=== PATIENT | male | born 1955 | race Caucasian/White ===

== ENCOUNTER 2025-03-10 09:16 | Inpatient (IN) | payer MEDICARE ==
[~2025-03-10] VITALS: Ht 182.9 cm; Wt 93.1 kg
[2025-03-10] MEDS ORDERED: Ondansetron HCl 2 MG / ML 2ML Vial IV ONE (09:45)
[2025-03-10] MEDS ORDERED: Pantoprazole Sodium 40 MG Injection IV ONE (09:45)
[2025-03-10 10:10] LABS: BASOPHILS ABSOLUTE AUTO 0.06 K/mm3 (0.00-0.23); BASOPHILS PERCENT AUTO 0 % (0-2); EOSINOPHILS ABSOLUTE AUTO 0.03 K/mm3 (0.00-0.68); EOSINOPHILS PERCENT AUTO 0 % (0-6); Hematocrit 45.1 % (37.0-53.0); Hemoglobin 15.3 g/dL (13.5-17.5); IMMATURE GRAN ABSOLUTE AUTO 0.06 K/mm3 (0.00-0.10); IMMATURE GRAN PERCENT AUTO 0 % (0-1); LYMPHOCYTES ABSOLUTE AUTO 0.39 K/mm3 (0.84-5.20); LYMPHOCYTES PERCENT AUTO 3 % (21-46); MONOCYTES ABSOLUTE AUTO 0.72 K/mm3 (0.16-1.47); MONOCYTES PERCENT AUTO 5 % (4-13); Mean Corpuscular HGB Conc 33.9 g/dL (31.5-36.5); Mean Corpuscular Volume 90 fL (80-100); NEUTROPHILS ABSOLUTE AUTO 13.18 K/mm3 (1.96-9.15); NEUTROPHILS PERCENT AUTO 91 % (41-73); NRBC ABSOLUTE 0.00 K/mm3 (0.00-0.02); NRBC Auto 0.0 /100 WBC (0.0-0.2); Platelet Count 261 K/mm3 (150-400); RDW Coefficient Variation 14.5 % (11.7-14.2); RDW Standard Deviation 47.6 fL (35.1-46.3)
[2025-03-10 10:30] LABS: Alanine Aminotransfer (ALT/SGP 32.0 U/L (12-78); Albumin, Blood 3.3 g/dL (3.4-5.0); Albumin/Globulin Ratio 0.9 (0.8-1.8); Anion Gap 7.0 mmol/L (3-11); Aspartate Aminotrans (AST/SGOT 26.0 U/L (12-37); Bilirubin, Total 1.1 mg/dL (0.1-1.0); Blood Urea Nitrogen 20.0 mg/dL (8-24); CO2, Blood 26.0 mmol/L (21-32); Calcium, Blood 9.0 mg/dL (8.5-10.1); Chloride, Blood 108.0 mmol/L (98-108); Creatinine, Blood 0.88 mg/dL (0.60-1.20); Globulin, Blood 3.7 g/dL (2.2-4.0); Glucose, Blood 111.0 mg/dL (70-99); Potassium, Blood 3.8 mmol/L (3.5-5.5); Sodium, Blood 137.0 mmol/L (136-145); Total Protein, Blood 7.0 g/dL (6.4-8.2)
[2025-03-10] MEDS ORDERED: Morphine Sulfate 4 MG/1 ML Injection IV ONE (10:30)
[2025-03-10 10:33] LABS: Prothrombin Time Results 11.3 Sec (9.7-11.5)
[2025-03-10] MEDS ORDERED: CefTRIAXone Sodium 1,000 MG in NS 100 ML IV ONE (11:05)
[2025-03-10] MEDS ORDERED: ATOR10 PO (11:38)
[2025-03-10] MEDS ORDERED: NORT25 PO (11:38)
[2025-03-10] MEDS ORDERED: Bisoprolol Fumar5 MG PO (11:38)
[2025-03-10] MEDS ORDERED: MULVITA PO (11:38)
[2025-03-10] MEDS ORDERED: DOCU100 PO (11:38)
[2025-03-10] MEDS ORDERED: TAMS.4ER PO (11:38)
[2025-03-10] MEDS ORDERED: LEVSOD75 PO (11:39)
[2025-03-10] MEDS ORDERED: ALEN70 PO (11:39)
[2025-03-10] MEDS ORDERED: DULERA 100 MCG/13 GM INH (11:39)
[2025-03-10] MEDS ORDERED: TIOT18 INH (11:41)
[2025-03-10] MEDS ORDERED: SILD25T PO (11:41)
[2025-03-10] MEDS ORDERED: ALLEGRA ALLERG180 MG PO (11:41)
[2025-03-10] MEDS ORDERED: IBU600 MG PO (11:41)
[2025-03-10] MEDS ORDERED: ALBU90OI INH (11:42)
[2025-03-10] MEDS ORDERED: NS 1,000 ML IV SCH (13:00)
[2025-03-10] MEDS ORDERED: Pantoprazole Sodium 40 MG Injection IV SCH ×2 (13:00→19:00)
[2025-03-10 14:01] LABS: Hematocrit 43.8 % (37.0-53.0); Hemoglobin 14.3 g/dL (13.5-17.5)
[2025-03-10] MEDS ORDERED: Formoterol/Mometasone MDI 5/100 mcg 13 GM INH SCH (15:15)
[2025-03-10] MEDS ORDERED: Albuterol HFA200 ACT/6.7 GM INH INH SCH (15:15)
[2025-03-10] MEDS ORDERED: Tiotropium Bromide 2.5 MCG/ACT MIST INHAL (10 ACT/4 GM) INH SCH (15:15)
[2025-03-10 18:14] VITALS: BP 142/70
[2025-03-10 19:45] VITALS: BP 124/55
[2025-03-10 19:48] LABS: Hematocrit 40.2 % (37.0-53.0); Hemoglobin 13.0 g/dL (13.5-17.5)
--- NOTE | 2025-03-10 19:50 | NUR ---
1804- PT ARRIVED TO MEDICAL FLOOR ROOM 334 IN STABLE CONDITION ON 2L VIA NC.
--- NOTE | 2025-03-10 19:51 | NUR ---
SUMMARY- AAOX4. SBA IN ROOM. PT WEANED TO RA FROM 2L NC THIS SHIFT. NO COMPLAINTS OF PAIN. NO ACUTE EVENTS SINCE ARRIVAL TO MED FLOOR.
[2025-03-11 04:40] VITALS: BP 142/76
[2025-03-11 04:58] LABS: BASOPHILS ABSOLUTE AUTO 0.06 K/mm3 (0.00-0.23); BASOPHILS PERCENT AUTO 0 % (0-2); EOSINOPHILS ABSOLUTE AUTO 0.08 K/mm3 (0.00-0.68); EOSINOPHILS PERCENT AUTO 0 % (0-6); Hematocrit 37.9 % (37.0-53.0); Hemoglobin 12.4 g/dL (13.5-17.5); IMMATURE GRAN ABSOLUTE AUTO 0.18 K/mm3 (0.00-0.10); IMMATURE GRAN PERCENT AUTO 1 % (0-1); LYMPHOCYTES ABSOLUTE AUTO 1.30 K/mm3 (0.84-5.20); LYMPHOCYTES PERCENT AUTO 6 % (21-46); MONOCYTES ABSOLUTE AUTO 0.83 K/mm3 (0.16-1.47); MONOCYTES PERCENT AUTO 4 % (4-13); Mean Corpuscular HGB Conc 32.7 g/dL (31.5-36.5); Mean Corpuscular Volume 92 fL (80-100); NEUTROPHILS ABSOLUTE AUTO 20.11 K/mm3 (1.96-9.15); NEUTROPHILS PERCENT AUTO 89 % (41-73); NRBC ABSOLUTE 0.00 K/mm3 (0.00-0.02); NRBC Auto 0.0 /100 WBC (0.0-0.2); Platelet Count 221 K/mm3 (150-400); RDW Coefficient Variation 14.7 % (11.7-14.2); RDW Standard Deviation 49.5 fL (35.1-46.3)
--- NOTE | 2025-03-11 05:00 | NUR ---
SHIFT SUMMARY PATIENT A/O X4- SBA IN ROOM DUE TO IV AND WEAKNESS. NO PAIN REPORTED THROUGHOUT SHIFT. PT NPO AT 0400 W/ CLEAR LIQ PRIOR THROUGHOUT SHIFT. VITAL SIGNS REMAINED STABLE. NO ACUTE EVENTS. PLEASANT AND COOPERATIVE WITH CARE, ABLE TO MAKE NEEDS KNOW. WILL CONTINUE TO MONITOR AND REPORT TO ONCOMING RN.
[2025-03-11 05:10] LABS: Prothrombin Time Results 13.0 Sec (9.7-11.5)
[2025-03-11 05:23] LABS: Alanine Aminotransfer (ALT/SGP 24.0 U/L (12-78); Albumin, Blood 2.5 g/dL (3.4-5.0); Albumin/Globulin Ratio 0.7 (0.8-1.8); Anion Gap 3.0 mmol/L (3-11); Aspartate Aminotrans (AST/SGOT 18.0 U/L (12-37); Bilirubin, Total 0.8 mg/dL (0.1-1.0); Blood Urea Nitrogen 16.0 mg/dL (8-24); CO2, Blood 30.0 mmol/L (21-32); Calcium, Blood 7.9 mg/dL (8.5-10.1); Chloride, Blood 108.0 mmol/L (98-108); Creatinine, Blood 0.92 mg/dL (0.60-1.20); Globulin, Blood 3.4 g/dL (2.2-4.0); Glucose, Blood 97.0 mg/dL (70-99); Potassium, Blood 4.0 mmol/L (3.5-5.5); Sodium, Blood 137.0 mmol/L (136-145); Total Protein, Blood 5.9 g/dL (6.4-8.2)
--- NOTE | 2025-03-11 06:36 | NUR ---
NOTIFIED PROVIDER ABOUT WBC COUNT GOING FROM 14.4 TO 22.56 WITH NO NEW ORDERS AT THIS TIME.
[2025-03-11 07:29] VITALS: BP 151/84
[2025-03-11] MEDS ORDERED: Ampicillin Sod/Sulbactam Sod 3 GM in NS 100 ML IV SCH (09:00)
--- NOTE | 2025-03-11 11:16 | NUR ---
PROVIDER CONTACT: PT COMPLAINS OF 7/[address] JORGE NOTIFIED AND VERBALIZED HE WILL PUT NEW ORDERS IN THE EMAR. PT REMAINS NPO AT THIS TIME FOR PROCEDURE. CARE CONTINUES.
[2025-03-11 11:58] VITALS: BP 159/89
--- NOTE | 2025-03-11 12:00 | NUR ---
PT HERE VIA W/C FROM [facility] FOR EGD. PT HAD EMESIS X 3 YESTERDAY
[2025-03-11 12:06] VITALS: BP 152/90
--- NOTE | 2025-03-11 12:19 | NUR ---
CALLED AND SPOKE WITH DR. JORGE REGARDING DUPLICATE ORDERS FOR SPUTUM AND BLOOD CULTURES AND THAT THE SPUTUM WAS ALREADY COLLECTED AND IV ANTIBIOTICS ALREADY STARTED. ALSO NOTIFIED DR. JORGE THAT PATIENT WAS TAKEN DOWN FOR HIS EGD, BUT WAS FEBRILE AND TACHYCARDIAC SO BRINGING HIM BACK TO THE UNIT AND THAT DR. OLIVAS IS GOING TO HOLD OFF UNTIL HE IS STABLE. ALSO GAVE AN UPDATE TO PATIENT'S .
--- NOTE | 2025-03-11 12:29 | NUR ---
1208 DR. OLIVAS AT BS TALKING W/PT. WILL CX EGD FOR NOW TO FOCUS ON TX OF PNEUMONIA. H+H STABLE. REPORT CALLED TO MED FLOOR RN.
--- NOTE | 2025-03-11 12:58 | NUR ---
1230 EVENT: DR ARAUZ CALLED ABOUT PT TEMPERATURE BEING ELEVATED AT 103.1. DR ARAUZ GAVE THIS NURSE A VERBAL ORDER TO ADMINISTER 650mg OF TYLENOL INSTEAD OF THE ORDERED 350mg. THIS NURSE AND LACI RN TO ASSESS PT. FOUND PTs TEMPERATURE TO BE BELOW 100. DR ARAUZ AND DR SLATER TO PT ROOM TO ASSESS AND BOTH WERE NOTIFIED OF THE CURRENT READING. TYLENOL STILL ADMINISTERED DUE TO PTs PAIN BEING ELEVATED. CARE CONTINUES.
[2025-03-11] MEDS ORDERED: DULERA 200 MCG-13 GM INH (13:48)
[2025-03-11] MEDS ORDERED: SILDENAFIL CITR20 M1 PO (13:49)
[2025-03-11] MEDS ORDERED: SYNTHROID125 MC1 PO (13:49)
[2025-03-11] MEDS ORDERED: EUTHYROX125 MCG PO (13:50)
--- NOTE | 2025-03-11 14:11 | NUR ---
MULTIPLE ATTEMPTS MADE TO INQUIRE ABOUT DIET STATUS FOR PATIENT. CALLED BRYON NOVAK AND ATTEMPTED NIX.
[2025-03-11 15:38] VITALS: BP 117/60
[2025-03-11 15:50] LABS: Influenza A/2009-H1 Not Detected (NOT DETECT); SARS-Cov-2 (COVID-19), BioFire Not Detected (NOT DETECT)
[2025-03-11 15:51] LABS: Acinetobacter baumannii DNA Not Detected copy/mL (NOT DETECT); Enterobacter cloacae DNA Not Detected copy/mL (NOT DETECT); Escherichia coli DNA Not Detected copy/mL (NOT DETECT); Haemophilus influenzae DNA Not Detected copy/mL (NOT DETECT); Klebsiella aerogenes DNA Not Detected copy/mL (NOT DETECT); Klebsiella oxytoca DNA Not Detected copy/mL (NOT DETECT); Klebsiella pneumoniae DNA Detected Bin 10^4 copy/mL (NOT DETECT); Moraxella catarrhalis DNA Not Detected copy/mL (NOT DETECT); Proteus sp DNA Not Detected copy/mL (NOT DETECT); Pseudomonas aeruginosa DNA Not Detected copy/mL (NOT DETECT); Serratia marcescens DNA Not Detected copy/mL (NOT DETECT); Staphylococcus aureus DNA Not Detected copy/mL (NOT DETECT); Streptococcus agalactiae DNA Not Detected copy/mL (NOT DETECT); Streptococcus pneumoniae DNA Not Detected copy/mL (NOT DETECT); Streptococcus pyogenes DNA Not Detected copy/mL (NOT DETECT)
[2025-03-11 15:52] LABS: CTX-M Resistance Gene Not Detected; Chlamydia pneumonia Not Detected (NOT DETECT); Human Coronavirus RNA Not Detected (NOT DETECT); Human Metapneumovirus RNA Not Detected (NOT DETECT); IMP Resistance Gene Not Detected; Influenza virus A RNA Not Detected (NOT DETECT); Influenza virus B RNA Not Detected (NOT DETECT); KPC Resistance Gene Not Detected; NDM Resistance Gene Not Detected; OXA-48-like Resistance Gene Not Detected; Respiratory syncytial Vir RNA Not Detected (NOT DETECT); Rhinovirus+Enterovirus RNA Not Detected (NOT DETECT); VIM Resistance Gene Not Detected
[2025-03-11] MEDS ORDERED: Ondansetron HCl 2 MG / ML 2ML Vial IV PRN (16:25)
--- NOTE | 2025-03-11 17:59 | NUR ---
SHIFT SUMMARY: A&OX4 THIS SHIFT. PLESANT WITH CARE PROVIDED. PT NPO THIS AM FOR EDG, BUT WAS SEEN TO HAVE AN ELEVATED TEMPERATURE (SEE PREVIOUS NOTES). PLAN IS TO DO THE EDG TOMORROW, SO NPO ORDER IN EFFECT AT 0000. AT THIS TIME, PT IS IN ROOM WITH STABLE VITAL SIGNS. TEMPERATURE IS WNL. PT DOES HAVE CHRONIC MIGRAINES AND PER DR ARAUZ AND DR OLIVAS NO TYLENOL AND ANTIPYRETCIS ARE TO BE GIVEN PRIOR TO PROCEDURE TO MASK FEVERS. MEDICATED THROUGHOUT SHIFT PER EMAR. PT HAS REMAINED IN BED RESTING. BREATHING IS EQUAL AND UNLABORED. DENIES CHEST PAIN AND/OR DISCOMFORT. BED IN THE LOWEST POSITION. CALL LT NEAR PT REACH.
[2025-03-11] MEDS ORDERED: Ipratropium/Albuterol SulF 2.5-0.5MG/3 ML Amp INH PRN (20:00)
[2025-03-11 20:10] VITALS: BP 157/67
[2025-03-12] VITALS (8 sets, daily range): BP systolic 134–178; BP diastolic 59–96
--- NOTE | 2025-03-12 04:33 | NUR ---
SHIFT SUMMARY PATIENT A/O X4, VITAL SIGNS STABLE THROUGHOUT SHIFT, NO FEVERS NOTED. SBA WITH TRANSFERS DUE TO WEAKNESS. NO EMESIS THIS SHIFT, TREATED FOR NAUSEA X1. NPO SINCE 0000. NO ACUTE CHANGES THROUGHOUT SHIFT. WILL CONTINUE TO MONITOR AND REPORT TO ONCOMING RN.
[2025-03-12 05:48] LABS: BASOPHILS ABSOLUTE AUTO 0.04 K/mm3 (0.00-0.23); BASOPHILS PERCENT AUTO 0 % (0-2); EOSINOPHILS ABSOLUTE AUTO 0.12 K/mm3 (0.00-0.68); EOSINOPHILS PERCENT AUTO 1 % (0-6); Hematocrit 35.0 % (37.0-53.0); Hemoglobin 11.4 g/dL (13.5-17.5); IMMATURE GRAN ABSOLUTE AUTO 0.12 K/mm3 (0.00-0.10); IMMATURE GRAN PERCENT AUTO 1 % (0-1); LYMPHOCYTES ABSOLUTE AUTO 0.95 K/mm3 (0.84-5.20); LYMPHOCYTES PERCENT AUTO 6 % (21-46); MONOCYTES ABSOLUTE AUTO 0.83 K/mm3 (0.16-1.47); MONOCYTES PERCENT AUTO 5 % (4-13); Mean Corpuscular HGB Conc 32.6 g/dL (31.5-36.5); Mean Corpuscular Volume 92 fL (80-100); NEUTROPHILS ABSOLUTE AUTO 14.94 K/mm3 (1.96-9.15); NEUTROPHILS PERCENT AUTO 88 % (41-73); NRBC ABSOLUTE 0.00 K/mm3 (0.00-0.02); NRBC Auto 0.0 /100 WBC (0.0-0.2); Platelet Count 198 K/mm3 (150-400); RDW Coefficient Variation 14.7 % (11.7-14.2); RDW Standard Deviation 49.7 fL (35.1-46.3)
[2025-03-12 06:13] LABS: Anion Gap 7.0 mmol/L (3-11); Blood Urea Nitrogen 14.0 mg/dL (8-24); CO2, Blood 26.0 mmol/L (21-32); Calcium, Blood 7.9 mg/dL (8.5-10.1); Chloride, Blood 107.0 mmol/L (98-108); Creatinine, Blood 0.78 mg/dL (0.60-1.20); Glucose, Blood 79.0 mg/dL (70-99); Potassium, Blood 3.9 mmol/L (3.5-5.5); Sodium, Blood 136.0 mmol/L (136-145)
--- NOTE | 2025-03-12 11:59 | NUR ---
03/12/25 1159 Kade Barlow MONITOR INTACT WITH CONTINUOUS PULSE OXIMETRY, CONTINUOUS END TITAL CO2, 3-LEAD EKG AND INTERMITTENT BLOOD PRESSURE. ANESTHESIA PER DR. JOHNSON
--- NOTE | 2025-03-12 13:13 | NUR ---
PT ARRIVED TO FLOOR FROM PACU, ABLE TO STAND FOR TRANSFER, PT IS DROWSY AND ORIENTED X4, PASSING GAS. VSS
--- NOTE | 2025-03-12 16:22 | NUR ---
EGD COMPLETED TODAY. NO ACUTE BLEEDING NOTED DURING PROCEDURE. . PT REPORTS FEELING LIKE HE HAS THE FLU. WILL CONTNIUE TO MONITOR SYMPTOMS. PER MD, IF PT DOES NOT FEEL SIGNIFICANTLY BETTER TOMORROW THEY WILL POSSIBLY DO A FOLLOW UP CHEST CT. PT AND SPOUSE AT BEDSIDE DURING MD ROUNDING AND ARE AWARE OF CURRENT PLAN OF CARE. PT IS INDEPENDENT IN THE ROOM, CALLS APPROPRIATELY. TOLORATING SOME PO INTAKE.
--- NOTE | 2025-03-12 17:39 | NUR ---
ORAL TEMP 100.1, PER DR. SLATER, ORDER TYLENOL 650 MG PO Q6P.
--- NOTE | 2025-03-12 20:13 | NUR ---
TELEMETRY: NURSE NOTIFIED BY BUSINESS CONTINUITY COORDINATOR REGARDING 5 BEAT RUNS OF PVCS AND TRIGEMINY. PROVIDER NOTIFIED, NO FURTHER ORDERS AT THIS TIME, PROVIDER STATED HE WILL TAKE A LOOK IN HIS CHART. PT DENYING ANY CHEST PAIN OR PRESSURE AT THIS TIME AND IS VERY AWARE OF HIS CARDIAC HISTORY.
[2025-03-13 03:10] VITALS: BP 141/67
[2025-03-13 05:41] LABS: BASOPHILS ABSOLUTE AUTO 0.04 K/mm3 (0.00-0.23); BASOPHILS PERCENT AUTO 0 % (0-2); EOSINOPHILS ABSOLUTE AUTO 0.16 K/mm3 (0.00-0.68); EOSINOPHILS PERCENT AUTO 1 % (0-6); Hematocrit 34.5 % (37.0-53.0); Hemoglobin 11.1 g/dL (13.5-17.5); IMMATURE GRAN ABSOLUTE AUTO 0.09 K/mm3 (0.00-0.10); IMMATURE GRAN PERCENT AUTO 1 % (0-1); LYMPHOCYTES ABSOLUTE AUTO 0.82 K/mm3 (0.84-5.20); LYMPHOCYTES PERCENT AUTO 7 % (21-46); MONOCYTES ABSOLUTE AUTO 0.66 K/mm3 (0.16-1.47); MONOCYTES PERCENT AUTO 5 % (4-13); Mean Corpuscular HGB Conc 32.2 g/dL (31.5-36.5); Mean Corpuscular Volume 91 fL (80-100); NEUTROPHILS ABSOLUTE AUTO 10.42 K/mm3 (1.96-9.15); NEUTROPHILS PERCENT AUTO 86 % (41-73); NRBC ABSOLUTE 0.00 K/mm3 (0.00-0.02); NRBC Auto 0.0 /100 WBC (0.0-0.2); Platelet Count 187 K/mm3 (150-400); RDW Coefficient Variation 14.2 % (11.7-14.2); RDW Standard Deviation 48.1 fL (35.1-46.3)
[2025-03-13 06:13] LABS: Anion Gap 9.0 mmol/L (3-11); Blood Urea Nitrogen 12.0 mg/dL (8-24); CO2, Blood 26.0 mmol/L (21-32); Calcium, Blood 7.8 mg/dL (8.5-10.1); Chloride, Blood 107.0 mmol/L (98-108); Creatinine, Blood 0.7 mg/dL (0.60-1.20); Glucose, Blood 83.0 mg/dL (70-99); Potassium, Blood 3.8 mmol/L (3.5-5.5); Sodium, Blood 138.0 mmol/L (136-145)
--- NOTE | 2025-03-13 06:28 | NUR ---
NIGHT SUMMARY: PT REMAINED AFEBRILE OVERNIGHT, USING URINAL AT BEDSIDE. AOX4 ABLE TO MAKE NEEDS KNOWN. NAUSEA MEDS GIVEN PER EMAR. CALL LIGHT WITHIN REACH AND BED IN LOW POSITION.
[2025-03-13 07:29] VITALS: BP 163/85
[2025-03-13] MEDS ORDERED: Polyethylene Glycol 3350 17 gm PO ONE (08:10)
[2025-03-13] MEDS ORDERED: ONDA4 PO (11:22)
[2025-03-13] MEDS ORDERED: PANT40 PO (11:23)
[2025-03-13] MEDS ORDERED: AMOCLA875 PO (11:24)
--- NOTE | 2025-03-13 12:20 | NUR ---
PT DISCHARGED HOME. NEW RX FAXED TO [facility] AND PT EDUCATED RE STOPPING NSAID USE, NEW RX, AND DISCHARGE PLAN. PLAN FOR PT TO FOLLOW UP WITH PCP ONCE HE RETURNS TO [place] ON SUNDAY. IV REMOVED AND SITE APPEARS WNL. TELE REMOVED/CLEANED AND SENT BACK TO PCU BY RN. PT AMBULATED INDEPENDENTLY TO AND TAKEN DOWN TO PT ENTRANCE BY RECORDER OF DEEDS TO MEET HIS SPOUSE.
== END 2025-03-13 12:13 | disposition home or self-care (01) | DRG 871 ==
LOC: ER 09:16 → MEDS 12:05 → ENPENDDIS 03-13 10:53 → MEDS 03-13 12:13
PROVIDERS: Emergency Medicine; Student in an Organized Health Care Education/Training Program; Surgery; ADMIT Hospitalist
PROC: 3E03329 Introduction of Other Anti-infective into Peripheral Vein, Percutaneous Approach (ICD-10-PCS; principal; 2025-03-10)
PROC: 0DB78ZX Excision of Stomach, Pylorus, Via Natural or Artificial Opening Endoscopic, Diagnostic (ICD-10-PCS; 2025-03-12)
DX: A41.59 Other Gram-negative sepsis (principal); J18.9 Pneumonia, unspecified organism; J69.0 Pneumonitis due to inhalation of food and vomit; K29.71 Gastritis, unspecified, with bleeding; J44.0 Chronic obstructive pulmonary disease with (acute) lower respiratory infection; E78.5 Hyperlipidemia, unspecified; E03.9 Hypothyroidism, unspecified; N40.0 Benign prostatic hyperplasia without lower urinary tract symptoms; I49.3 Ventricular premature depolarization; R00.8 Other abnormalities of heart beat; K44.9 Diaphragmatic hernia without obstruction or gangrene; K31.7 Polyp of stomach and duodenum; D50.0 Iron deficiency anemia secondary to blood loss (chronic); M81.0 Age-related osteoporosis without current pathological fracture; R51.9 Headache, unspecified; Z79.890 Hormone replacement therapy; Z79.83 Long term (current) use of bisphosphonates; Z79.1 Long term (current) use of non-steroidal anti-inflammatories (NSAID); Z79.51 Long term (current) use of inhaled steroids; Z87.891 Personal history of nicotine dependence
CPT/HCPCS: 0202U; 0528U; 36415; 71045; 74175; 80048; 80053; 84145; 84484; 85014; 85018; 85025; 85610; 85730; 86140; 86850; 86900; 86901; 87040; 87070; 87205; 88305; 88342; 93005; 93010; 94640; 94664; 94760; 96365-59; 96367; 96375-59; 96376-59; 99285-25; A9270; J0295; J0456; J0696; J2270; J2405; J2470; J7030; J7050; J7120; Q9967